=== PATIENT | male | born 1945 | race Caucasian/White ===

== ENCOUNTER 2016-10-07 09:28 | Outpatient (CLI) | payer MEDICARE ==
[2016-10-07 10:11] LABS: Prothrombin Time 22.5 SEC (12.0-14.7)
== END 2016-10-07 09:29 | disposition home or self-care (01) ==
LOC: MADLAB 09:28
DX: I48.91 Unspecified atrial fibrillation (principal)
CPT/HCPCS: 36415; 85610

== ENCOUNTER 2017-10-17 16:42 | Outpatient (CLI) | payer MEDICARE ==
[2017-10-17 17:11] LABS: INR-International Normal Ratio 3.5; Prothrombin Time 37.2 SEC (12.0-14.7)
== END 2017-10-17 16:43 | disposition home or self-care (01) ==
LOC: MADLAB 16:42
PROVIDERS: ATTEND Internal Medicine Cardiovascular Disease
DX: Z51.81 Encounter for therapeutic drug level monitoring (principal); I48.91 Unspecified atrial fibrillation; Z79.01 Long term (current) use of anticoagulants
CPT/HCPCS: 36415; 85610